=== PATIENT | male | born 1990 | race Two or more races ===

== ENCOUNTER 2017-05-28 00:21 | Emergency (ER) | payer SELFPAY ==
[~2017-05-28] VITALS: Ht 172.7 cm; Wt 81.6 kg
[2017-05-28 01:45] VITALS: BP 121/58
[2017-05-28] MEDS ORDERED: oxyCODONE/APAP 5/325 1 TAB TABLET PO ONE (03:00)
[2017-05-28] MEDS ORDERED: NAPROXEN 500 MG TABLET PO ONE (03:00)
[2017-05-28] MEDS ORDERED: LIDOCAINE 1% / SOD BICARB 8.4% 20 ML VIAL. IJ ONE (03:00)
[2017-05-28] MEDS ORDERED: DIPHTH,PERTUSS(ACELL),TET TOX 0.5 ML DISP.SYRIN. VAX IM ONE (03:00)
[2017-05-28] MEDS ORDERED: CEPH-264 PO (05:53)
[2017-05-28] MEDS ORDERED: OXYC-323 PO (05:53)
[2017-05-28] MEDS ORDERED: NAPR250T2 PO (05:53)
[2017-05-28] MEDS ORDERED: CEPHALEXIN 250 MG CAPSULE. PO ONE (06:00)
--- NOTE | 2017-05-28 07:30 | ED.ADGEN ---
Past Medical History Past Medical History: No Pertinent History Past Surgical History: No Surgical History Alcohol Use: Occasionally Drug Use: None Adult General Chief Complaint Chief Complaint: HAND PROBLEM HPI HPI Patient is a 27 year old woman, with no significant past no history, who presents emergency Department with complaint of pain in the right index finger, after a part of the distributor landed on his finger while he was working earlier today. Patient states injury occurred about 5 or 6 hours prior to arrival in the ED. States that he did attempt to clean the hand off, continued working. Unclear on his last tetanus, states he is having pain and difficulty with flexion and full extension, no other injuries identified. No other complaints. Review of Systems Review of Systems Constitutional: Denies fever or chills. [] Eyes: Denies change in visual acuity. [] HENT: Denies nasal congestion or sore throat. [] Respiratory: Denies cough or shortness of breath. [] Cardiovascular: Denies chest pain or edema. [] GI: Denies abdominal pain, nausea, vomiting, bloody stools or diarrhea. [] : Denies dysuria. [] Musculoskeletal: Denies back pain, pain with laceration and maceration of the volar aspect of the right second digit. Integument: Denies rash. [] Neurologic: Denies headache, focal weakness or sensory changes. [] Endocrine: Denies polyuria or polydipsia. [] Lymphatic: Denies swollen glands. [] Psychiatric: Denies depression or anxiety. [] Current Medications Current Medications Current Medications Medications (Trade) Dose Ordered Sig/Karl Start Time Stop Time Status Last Admin Dose Admin Cephalexin HCl (Keflex) 500 mg 1X ONCE 05/28/17 06:00 05/28/17 06:01 DC 05/28/17 06:01 500 MG Diphtheria/ Tetanus/Acell Pertussis (Boostrix) 0.5 ml ONCE ONCE 05/28/17 03:00 05/28/17 03:01 DC 05/28/17 03:00 0.5 ML Lidocaine/Sodium Bicarbonate (Buffered Lidocaine 1%) 20 ml 1X ONCE 05/28/17 03:00 05/28/17 03:01 DC 05/28/17 04:30 20 ML Naproxen (Naprosyn) 500 mg 1X ONCE 05/28/17 03:00 05/28/17 03:01 DC 05/28/17 03:00 500 MG Oxycodone/ Acetaminophen (Percocet 5/325) 1 tab 1X ONCE 05/28/17 03:00 05/28/17 03:01 DC 05/28/17 03:00 1 TAB Allergies Allergies Allergies Coded Allergies Type Severity Reaction Last Updated Verified No Known Drug Allergies 05/28/17 No Physical Exam Physical Exam Constitutional: Well developed, well nourished, no acute distress, non-toxic appearance. [] HENT: Normocephalic, atraumatic, bilateral external ears normal, oropharynx moist, no oral exudates, nose normal. [] Eyes: PERRLA, EOMI, conjunctiva normal, no discharge. [] Skin: Warm, dry, no erythema, no rash. [] Back: No tenderness, no CVA tenderness. [] Extremities: Patient with a macerated laceration to the volar aspect of the right second digit, in the PIP distribution, across the joint space, patient with significant swelling, limited flexion, full extension, exploration reveals visible tendon, without evidence of tendon injury, and evidence of shearing of the top layer of skin and irregular, stellate laceration, which is currently hemostatic, 1/2 cm in size, gaping, patient with no other injuries identified, limited flexion as stated in the index finger, with full range of motion of the fingers, wrist, and rest of the extremity, no other injuries identified no cyanosis, no clubbing. [] Neurologic: Alert and oriented X 3, normal motor function, normal sensory function, no focal deficits noted. [] Psychologic: Affect normal, judgement normal, mood normal. [] Current Patient Data Vital Signs Vital Signs Date Time Temp Pulse Resp B/P (MAP) Pulse Ox O2 Delivery O2 Flow Rate FiO2 05/28/17 03:00 20 05/28/17 01:45 97.8 88 76 Room Air 97.8 EKG EKG Not indicated. [] Radiology/Procedures Radiology/Procedures Right finger x-ray: Three-view: No fracture subluxation, soft tissue swelling noted surrounding the second digit in the volar aspect, no foreign bodies identified. As interpreted by me. [] Course & Med Decision Making Course & Med Decision Making Pertinent Labs and Imaging studies reviewed. (See chart for details) [] Dragon Disclaimer Dragon Disclaimer This electronic medical record was generated, in whole or in part, using a voice recognition dictation system. Patient's tetanus was updated in the emergency department he received oral analgesia with naproxen and Percocet. Patient with a significant maceration stellate laceration of the finger, from a crush injury, with visualization of tendon, x-ray does not reveal evidence of acute fracture, and tendon function appears intact with no visible tendon damage. Debridement was performed after copious irrigation, and wound was closed as stated in the accompanying note. Discussed the patient importance of following up with hand surgery for additional evaluation, Steri-Strips are applied, and patient was placed in a splint, is neurovascularly intact. Patient was initiated on Keflex, prescription given first dose in the ED, with Percocet, and naproxen for discomfort. Given clear and detailed return instructions and follow-up instructions with which she and significant other bedside voiced understanding and agreement. Patient discharged home in stable condition with plan to follow- up with hand surgery, and return to the ED for concerning symptoms as discussed. Laceration Repair Lac Repair Indication: One and a half centimeter macerated laceration to the volar aspect of the second digit of the right hand Procedure: The patient was placed in the appropriate position and copious irrigation was applied to the laceration, along with soaking in warm water, patient with significant contamination of the wound, with grease and dust, a volar nerve block was applied with good effect, and additional irrigation under pressure was established using 250 mL of sterile normal saline. Debridement of overlying skin which was macerated beyond repair was performed, visualization of the tendon was established in a bloodless field, no tendon injury was identified on this examination, although as stated there significant maceration surrounding the region. One mattress suture using 5-0 Vicryl was applied, and additional simple directed suture was applied for approximation of the internal tissues of the finger, with full closure of the tendon established , and additional 6 simple interrupted sutures using 5-0 nylon were used to approximate the wound edges, of this irregular stellate laceration, with [place] performed of macerated superficial skin which she peeled back. Wound was hemostatic, with adequate closure and coverage of the internal finger structures. Total repaired wound length: One and a half centimeters Other Items: None The patient tolerated the procedure [well Complications: [None. Departure Impression: Primary Impression: Crushing injury of finger of right hand Additional Impression: Laceration of finger of left hand Disposition: 01 HOME, SELF-CARE Condition: IMPROVED Scripts Cephalexin (KEFLEX) 500 Mg Capsule 1 CAP PO BID, #20 CAP Prov: SUORAV HAYWARD DO 05/28/17 Oxycodone/Apap 5-325 (PERCOCET 5-325 MG TABLET) 1 Each Tablet 1 TAB PO PRN Q6HRS Y for PAIN, #12 TAB 0 Refills Prov: SOURAV HAYWARD DO 05/28/17 Naproxen (NAPROXEN) 250 Mg Tablet 250 MG PO PRN BID Y for PAIN, #10 Prov: SOURAV HAYWARD DO 05/28/17 Problem Qualifiers SOURAV HAYWARD DO May 28, 2017 07:30
--- NOTE | 2017-05-28 07:36 | RAD ---
Indication injury, pain. AP oblique and lateral views of the right index finger were obtained. No bony abnormality is seen
== END 2017-05-28 06:05 | disposition home or self-care (01) ==
LOC: ER 00:21
DX: S61.210A Laceration without foreign body of right index finger without damage to nail, initial encounter (principal); X58.XXXA Exposure to other specified factors, initial encounter; Y93.89 Activity, other specified; Y99.8 Other external cause status; Y92.89 Other specified places as the place of occurrence of the external cause
CPT/HCPCS: 13131; 73140; 90471; 90715; 99285-25